=== PATIENT | male | born 1990 | race Caucasian/White ===

== ENCOUNTER 2021-01-06 08:00 | Outpatient (CLI) | payer OTHER | END 2021-01-06 23:59 | disposition home or self-care (01) | LOC: LAB.N 08:00 | PROVIDERS: ATTEND Family Medicine | DX: R07.0 Pain in throat (principal); Z20.822 Contact with and (suspected) exposure to COVID-19 | CPT/HCPCS: 87070 ==

== ENCOUNTER 2021-03-10 08:34 | Outpatient (CLI) | payer OTHER ==
[2021-03-10 09:46] VITALS: BP 117/88
--- NOTE | 2021-03-10 09:46 | SLEEP CARE CONSULTATION ---
Information from patient questionnaire entered by Selam Yeager MA. I have reviewed and concur with the information entered by Selam Yeager MA. This document represents the service I personally performed and the decisions made by , Melinda Kamara ARNP. History of Present Illness Service Date and Time: 03/10/2021 0834 Reason for Visit: New patient (LAST SEEN 2011, ONSET APR 2011) Chief Complaint: reports: Unrefreshed sleep, Snoring, Excessive daytime sl eepiness, Observed pauses in breathing, Fatigue, Frequent awakenings at night Date of Onset: 2012 Usual bedtime: 0700 Time it takes to fall asleep: 30 minutes Snores at night: Yes Observed to quit breathing while asleep: Yes Sleeps alone due to snoring: No Number of times waking at night: 1 - 2 Reasons for waking at night: reports: Gasping for air, Other (unknown reason ) Toss, Turn, or Twitch while sleeping: Yes Recalls having dreams: No Usually gets out of bed at: 2-3 in afternoon Feels refreshed in the morning: No Morning headache: No Sleepy or fatigued during the day: Yes Ever fallen asleep while driving: No Takes day naps: Yes (daily for 1-2 hours) Dreams during day naps: No Prior sleep studies: Yes Additional HPI information: I had the pleasure of seeing JUNE STONEREthel today regarding the possibility of him having a sleep disorder. His current complaints are excessive daytime sleepiness, fatigue, frequent night awakenings, observed pauses in breathing, snoring and unrefreshed sleep. He returns because his girlfriend is telling him his snoring and gasping in his sleep is getting worse. He does not wake up feeling rested and is fatigued during the day. 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 He did put on some weight due to time at home during covid pandemic but has been working on losing weight and lost about 15-20 pounds so far in last 5 months. - Parasomnia Symptoms Ever been unable to move upon waking from sleep: Yes (used to be a lot more, now about 1x month) Walks in sleep: No Talks in sleep: No Ever acted out dreams in sleep: Yes (has woke himself up) Ever felt weak in the knees when startled or emotional: No Bothered by creepy, crawly, restless sensations in legs: Yes (generally when tired, daily) Problems with memory or concentration: Yes (both) Subjective Initial [place] Sleepiness Scale score: 6 (in 2016) Past Medical History Past Medical History: reports: Depression Social History The patient's occupation is a [employer]. Patient is Single and lives in . Have you smoked in the past 12 months: Yes Years of smokin Alcohol use: Yes Alcohol amount and frequency: socially Caffeine use: Yes Caffeine amount and frequency: 2 x daily Family History Family history of sleep disordered breathing: Yes Family Hx Sleep Apnea: Father: Snoring Allergies and Home Medications Known drug allergies: No Drug allergies reviewed: Yes (NKDA) Home medication list reviewed: Yes Allergy and home medication list: Prozac Review of Systems Weight loss over past 5 years: 10-20 in last 5 months, intentionally Cardiovascular: denies: high blood pressure Gastrointestinal: reports: heartburn Neurological: reports: headaches Psychiatric: reports: depression Ear/Nose/Throat: reports: nasal congestion, nose bleeds, wisdom teeth removed. denies: tonsillectomy Musculoskeletal: reports: joint pain, back pain Immunologic: reports: sneezing, allergies to food or environment Physical Exam Vital signs obtained and entered by: SIVA BEEBE Blood Pressure: 117/88 (right) Cuff size: wrist Heart Rate: 81 O2 Saturation: 97 (with mask) Height: 5 ft 10 in Weight: 240 lb Body Mass Index: 34.4 BMI Classification: Obese Neck circumference: 17.75 (inches) Mouth and throat: narrow oropharynx Soft palate: long Hard palate: normal Uvula: normal Uvula visualization: 50% Mallampati Class II Tongue: enlarged in size with teeth keith on lateral edges Tonsils: 1+ Neck: normal w/o lymphadenopathy or thyromegaly Heart: regular rate and rhythm Lungs: clear bilaterally Impression and Plan 1. Suspected Obstructive Sleep Apnea-Hypopnea Syndrome, as suggested by a history of loud and irregular snoring, observed cessation of breath while asleep, gasping or choking in sleep, unrefreshed sleep, cognitive impairment, and excessive daytime sleepiness. Narrow oropharynx and obesity are common predisposing factors for obstructive sleep apnea-hypopnea syndrome. I recommend proceeding to polysomnography to confirm the diagnosis and to assess severity. If the patient has significant sleep disordered breathing, a manual CPAP titration study will also be performed to find the optimal treatment pressure. I informed the patient of what the sleep studies involve and after some discussion, obtained agreement to proceed. The pathophysiology of obstructive sleep apnea-hypopnea syndrome was discussed with the patient and health risks of cardiovascular and cerebrovascular disease if not treated. [facility] brochure for obstructive sleep apnea-hypopnea syndrome given and reviewed. Risks of drowsy driving discussed in detail and patient advised to avoid long distance driving and to plant puller at the first sign of drowsiness. Patient agreed to plan. * Schedule polysomnography +- manual CPAP titration study and return in 1-2 weeks after the study to discuss result and initiate therapy. * Avoid long distance driving or driving when feeling sleepy. * Avoid alcohol, sedative and muscle relaxant around bedtime. * Attempt to lose weight. * Review instructions provided by trained office staff on how to prepare for the sleep study. * Return for follow-up after sleep study completed. Counseling Topics: Weight loss health impact Visit Type: In Office Time Spent with Patient (minutes): 30 Provider Statement: I spent 100% of the Face to Face Visit with the patient with greater than 50% spent counseling the patient and coordination of care.
== END 2021-03-10 08:35 | disposition home or self-care (01) ==
LOC: SC 08:34
PROVIDERS: ATTEND Nurse Practitioner Family
DX: R06.83 Snoring (principal); R06.81 Apnea, not elsewhere classified; G47.8 Other sleep disorders; R41.89 Other symptoms and signs involving cognitive functions and awareness; G47.10 Hypersomnia, unspecified; F17.210 Nicotine dependence, cigarettes, uncomplicated; E66.9 Obesity, unspecified; Z68.34 Body mass index [BMI] 34.0-34.9, adult
CPT/HCPCS: 99203; 99212

== ENCOUNTER 2021-03-23 09:30 | Outpatient (CLI) | payer OTHER | END 2021-03-23 09:31 | disposition home or self-care (01) | LOC: SC 09:30 | PROVIDERS: ATTEND Nurse Practitioner Family | DX: F32.9 Major depressive disorder, single episode, unspecified (principal); G47.33 Obstructive sleep apnea (adult) (pediatric); R09.02 Hypoxemia | CPT/HCPCS: 95806 ==

== ENCOUNTER 2021-03-27 13:32 | Outpatient (CLI) | payer OTHER ==
--- NOTE | 2021-03-27 13:55 | SLEEP CARE CONSULTATION ---
Information from patient questionnaire entered by Selam Yeager MA. I have reviewed and concur with the information entered by Selam Yeager MA. This document represents the service I personally performed and the decisions made by , Melinda Kamara ARNP. History of Present Illness Service Date and Time: 03/27/2021 1332 Initial [place] Sleepiness Scale score: 6 (in 2015) Current [place] Sleepiness Scale score: 10 (2020) Additional HPI information: JUNE COVERT returns for follow up and results of the recently performed home sleep study. I explained the pathophysiology behind obstructive sleep apnea. We then spent quite a bit of time discussing different treatment options. For mild obstructive sleep apnea, surgery and oral appliance are alternatives to nasal CPAP therapy but in moderate or severe cases, nasal CPAP is the most effective and reliable treatment. I reviewed the impact of weight changes on sleep apnea and strongly recommended losing weight. After some discussion, the patient opted to go with the nasal CPAP therapy. Nasal autoCPAP set at 4-15 cmH20 will be ordered with rationale explained. A manual titration study will be ordered if unable to find optimal pressure with office adjustments. I explained how CPAP machine works with sample device ResMed [id number] and what to expect when using the machine. Using CPAP every night in order to get used to it was emphasized. Patient advised to put CPAP mask on before getting into bed so as not to fall asleep without CPAP. To assist acclimation to CPAP use, it could also be used for a short time during day while reading or watching TV. The patient was instructed to call the CPAP supplier to discuss any mechanical problem that may occur. If the mask given is uncomfortable or is difficult to keep on through the night even with adjustment, contact the CPAP supplier as many will replace with another mask style if notified before 30 days. If snoring or perceives is not getting enough air or too much air from the machine, notify this office. [facility] patient education PAP tips reviewed and given to patient. Patient does not drink alcohol. Patient was cautioned about risks of drowsy driving until sleepiness symptoms resolve. Sleep Study - Results Prior sleep studies: Yes Polysomnography/Home Sleep Study results: Physician Impression: The quality of the study is good. The length of the study is adequate (> 240 minutes). Please also see the tabulated and graphic data. 1. Obstructive Sleep Apnea-Hypopnea (ICD-10 G47.33), severe, with an AHI of 35.0/hr and cesar SaO2 of 77%. During the study, the patient had 68 apneas (68 obstructive, 0 central, 0 mixed) and 150 hypopneas. The longest episode lasted 99.0 seconds. The respiratory events occurred more frequently during supine sleep (supine AHI was 36.6 and non-supine, 16.55). 2. Hypoxemia (ICD-10 R09.02), moderate, with the lowest oxygen saturation of 77 % and 32.0 minutes with SaO2 under 90%. Baseline oxygen saturation was normal (Average oxygen saturation was 92%). Allergies and Home Medications Home medication list reviewed: Yes (no changes) Review of Systems Review of systems same as previous: Yes (no changes) Physical Exam Vital signs obtained and entered by: SIVA López Blood Pressure: 118/82 (right) Cuff size: wrist Heart Rate: 82 O2 Saturation: 97 (with mask, quitting vaping, weaning off, ) Height: 5 ft 10 in Weight: 235 lb Body Mass Index: 33.7 BMI Classification: Obese Impression and Plan 1. Obstructive Sleep Apnea-Hypopnea Syndrome, severe, with lowest oxygen saturation of 77%. Obviously this is the cause of the patients symptoms of unrefreshed sleep, and excessive daytime sleepiness. Positive pressure therapy could benefit depression. As mentioned above, the patient will be started on nasal autoCPAP therapy with pressure set at 4-15 cmH2O. A manual titration study will be completed if unable to find optimal treatment pressure with office adj ustments. Compliance guidelines also reviewed. A copy of compliance guidelines will be given for reference at check out. Because the apnea is more severe supine, I instructed to avoid sleeping supine using pillow positioning until able to start CPAP use. 2. Hypoxemia, moderate, with the lowest oxygen saturation of 77 % and 32.0 minutes with SaO2 under 90%. His baseline oxygen saturation was normal with an average oxygen saturation of 92%. * Nasal auto CPAP therapy, pressure at 4-15 cm H2O. * Attempt to lose weight. * Avoid alcohol consumption near bedtime. * Avoid supine sleep until using CPAP. * The patient is again cautioned about driving until sleepiness completely resolves. * Return one month after CPAP obtained. I will assess response to therapy and compliance at that time. Counseling Topics: Weight loss health impact Prescriptions: Auto CPAP Visit Type: In Office Time Spent with Patient (minutes): 21 Provider Statement: I spent 100% of the Face to Face Visit with the patient with greater than 50% spent counseling the patient and coordination of care.
[2021-03-27 13:56] VITALS: BP 118/82
== END 2021-03-27 13:33 | disposition home or self-care (01) ==
LOC: SC 13:32
PROVIDERS: ATTEND Nurse Practitioner Family
DX: G47.33 Obstructive sleep apnea (adult) (pediatric) (principal); E66.9 Obesity, unspecified; Z68.33 Body mass index [BMI] 33.0-33.9, adult; R09.02 Hypoxemia
CPT/HCPCS: 99212; 99213

== ENCOUNTER 2021-04-23 07:54 | Outpatient (CLI) | payer OTHER | END 2021-04-23 23:59 | disposition home or self-care (01) | LOC: LAB.N 07:54 | PROVIDERS: ATTEND Physician Assistant | DX: J06.9 Acute upper respiratory infection, unspecified (principal); R07.0 Pain in throat; Z20.822 Contact with and (suspected) exposure to COVID-19 ==

== ENCOUNTER 2021-09-17 13:50 | Outpatient (CLI) | payer OTHER ==
--- NOTE | 2021-09-17 14:43 | SLEEP CARE CONSULTATION ---
Information from patient questionnaire entered by Selam Yeager MA. I have reviewed and concur with the information entered by Selam Yeager MA. This document represents the service I personally performed and the decisions made by , Melinda Kamara ARNP. History of Present Illness Service Date and Time: 09/17/2021 1350 Previous diagnosis: Severe, Obstructive Sleep Apnea-Hypopnea Syndrome AHI: 35.0 (in 2020) Reason for follow up: first compliance (RESMED,) Equipment type: CPAP Equipment obtained from: [employer] (getting supplies) Mask style: Full face Mask brand: Resmed (Airfit [id number]) Backup mask available: No (will keep old mask when replaced) Last cushion change: 1 month Prior sleep studies: Yes HPI additional information: JUNE HASKINS was diagnosed to have severe, AHI 35.0, obstructive sleep apnea- hypopnea syndrome and returned today for CPAP therapy first compliance follow- up. Sleep Study - Results Prior sleep studies: Yes CPAP Compliance Data - Data Reviewed with Patient Average duration of nightly device use: 3 hours 48 minutes Compliance rate %: 35 (07-18-21 to 09-15-21; 60 day; 40% for last 30 days) Current pressure setting (cmH2O): 4-15 (median 7.3, avg 9.7, max 10.6) Average residual AHI: 2.0 Central apnea: .4 Obstructive apnea: .6 Hypopnea: .3 Average large leak: 56.0 Subjective Missed days of use due to: reports: mask issues (waking up and taking mask off) Patient concerns: reports: air blowing in eyes, nasal congestion, dry mouth, no se, throat, epistaxis. denies: aerophagia, mask discomfort, mask leak noise, condensation in mask/hose Observed to snore while using device: No Current pressure setting perceived as: comfortable On therapy, patient: reports: sleeping better, awakening more refreshed, being more awake and alert during the day, more rested overall. denies: drowsiness while driving Initial [place] Sleepiness Scale score: 6 (in 2015) Current [place] Sleepiness Scale score: 11 Allergies and Home Medications Home medication list reviewed: Yes (no changes) Review of Systems Review of systems same as previous: Yes (no changes) Physical Exam Vital signs obtained and entered by: Lit YEAGER CMA AAND Blood Pressure: 132/90 (LEFT, PULSE 89, RESP 16) Heart Rate: 91 O2 Saturation: 96 (PAPER MASK) Height: 5 ft 10 in Weight: 235 lb Body Mass Index: 33.7 BMI Classification: Obese Impression and Plan 1. Obstructive Sleep Apnea-Hypopnea Syndrome, severe, with poor treatment compliance and good apnea control. On CPAP therapy, the patient has better sleep quality and is more rested overall. The patients pressure will be changed to autoCPAP 8-11 cmH20 to reflect pressures being used. Patient advised to contact me if pressure change is uncomfortable so that it can be adjusted. Goals for apnea control discussed. He has been having issues with waking up and taking the mask off and then going back to sleep before realizing it. He states he thinks he is getting used to the mask on his face. He gets some air leaks that will wake him up and then he will wear the mask for the rest of the night. Compliance guidelines reviewed for insurance coverage. Patient was counseled on the difference between meeting compliance and optimal use of CPAP. Optimal use of CPAP is use of CPAP with all sleep to obtain maximum benefit of treatment. Patient is encouraged to use CPAP with all sleep. He voiced understanding. Patient's apnea severity and rationale for treatment to reduce apnea, improve sleep quality and reduce cardiovascular and cerebrovascular events was reviewed. I also reviewed the benefit of consistent device use of CPAP for depression. 2. Obesity, unspecified. Currently patients BMI is 33.7. Patient states he is trying to eat healthier and exercising more often. He feels he has lost weight. Obesity increases the risk of apnea, CPAP pressure requirements and overall health risks especially cardiovascular and diabetes. Thus patient is advised to continue to try to lose weight. * Change auto CPAP pressure to 8-11 cmH2O * Notify me if snoring with mask or feeling that the pressure is too much or too little * Attempt to lose weight * Call this office if any problems using CPAP * Return for follow up in 1-2 months, or sooner if concerns arise Counseling Topics: Spare mask, Weight loss health impact Visit Type: In Office Time Spent with Patient (minutes): 22 Provider Statement: I spent 100% of the Face to Face Visit with the patient with greater than 50% spent counseling the patient and coordination of care.
[2021-09-17 14:44] VITALS: BP 132/90
== END 2021-09-17 13:51 | disposition home or self-care (01) ==
LOC: SC 13:50
PROVIDERS: ATTEND Nurse Practitioner Family
DX: G47.33 Obstructive sleep apnea (adult) (pediatric) (principal); E66.9 Obesity, unspecified; Z68.33 Body mass index [BMI] 33.0-33.9, adult
CPT/HCPCS: 99212; 99213

== ENCOUNTER 2021-10-16 13:50 | Outpatient (CLI) | payer OTHER ==
[2021-10-16 14:37] VITALS: BP 121/78
--- NOTE | 2021-10-16 14:37 | SLEEP CARE CONSULTATION ---
Information from patient questionnaire entered by Selam Yeager MA. I have reviewed and concur with the information entered by Selam Yeager MA. This document represents the service I personally performed and the decisions made by , Melinda Kamara ARNP. History of Present Illness Service Date and Time: 10/16/2021 1350 Previous diagnosis: Severe, Obstructive Sleep Apnea-Hypopnea Syndrome AHI: 35.0 (in 2020) Reason for follow up: one month (tian patton 05/07/2021, ) Equipment type: CPAP Equipment obtained from: [employer] (needs to contact for supplies) Mask style: Full face Backup mask available: No (will keep old mask when replaced) Last cushion change: months Prior sleep studies: Yes HPI additional information: JUNE HASKINS was diagnosed to have severe, AHI 35.0, obstructive sleep apnea- hypopnea syndrome and returned today for CPAP therapy 1 month with pressure change follow-up. Sleep Study - Results Prior sleep studies: Yes CPAP Compliance Data - Data Reviewed with Patient Average duration of nightly device use: 4 HOURS 20 MINUTES Compliance rate %: 50 (09/15/21-10/14/21; 30 days; days used) Current pressure setting (cmH2O): 8-11 Average residual AHI: 1.6 Central apnea: .3 Obstructive apnea: .5 Hypopnea: .3 Subjective Missed days of use due to: reports: other (allergies) Patient concerns: reports: mask discomfort, air blowing in eyes. denies: aerophagia, mask leak noise, condensation in mask/hose, nasal congestion, dry mouth, nose, throat, epistaxis, other Observed to snore while using device: No Current pressure setting perceived as: comfortable On therapy, patient: reports: sleeping better, awakening more refreshed, being more awake and alert during the day, more rested overall. denies: drowsiness while driving Initial [place] Sleepiness Scale score: 6 (in 2015) Current [place] Sleepiness Scale score: 7 (10/16/2021) Allergies and Home Medications Home medication list reviewed: Yes (no changes) Review of Systems Review of systems same as previous: Yes (no changes) Physical Exam Vital signs obtained and entered by: SIVA López Blood Pressure: 121/78 (RESP 16, PULSE 63, RIGHT) Cuff size: wrist Heart Rate: 63 O2 Saturation: 97 (PAPER MASK) Height: 5 ft 10 in Weight: 230 lb (CLOTHES) Body Mass Index: 33.0 BMI Classification: Obese Impression and Plan 1. Obstructive Sleep Apnea-Hypopnea Syndrome, severe, with fair treatment compliance and good apnea control. On CPAP therapy, the patient has better sleep quality and is more rested overall. Patient has improved his compliance to 50% from 35% at his last visit. He states he is now able to leave the mask on in the last week for over 6 hours at night. He has significant improvement of his sleep apnea. I am encouraged that he will continue to improve his compliance numbers. He has been having some mask leaks with some air blowing in his eyes but he has not been able to change out his mask cushion. I encouraged him to call his DME supplier to order supplies since he has not yet done this. Mask leaks can be reduced by washing mask daily and changing mask cushions more frequently to improve mask seal and comfort. Patient's apnea severity and rationale for treatment to reduce apnea, improve sleep quality and reduce cardiovascular and cerebrovascular events was reviewed. I also reviewed the benefit of consistent device use of CPAP for depression. 2. Obesity, unspecified. Currently patients BMI is 33.0. Obesity increases the risk of apnea, CPAP pressure requirements and overall health risks especially cardiovascular and diabetes. Thus patient is advised to lose weight. Weight loss can be done with reducing portion size, reducing refined foods and balancing content with vegetables, fruit and whole grain foods. In addition, patient encouraged to get regular exercise. * Continue auto CPAP pressure at 8-11 cmH2O * Notify me if snoring with mask or feeling that the pressure is too much or too little * Attempt to lose weight * Call this office if any problems using CPAP * Return for follow up in 1-2 months, or sooner if concerns arise Counseling Topics: Spare mask, Weight loss health impact Visit Type: In Office Time Spent with Patient (minutes): 13 Provider Statement: I spent 100% of the Face to Face Visit with the patient with greater than 50% spent counseling the patient and coordination of care.
== END 2021-10-16 13:51 | disposition home or self-care (01) ==
LOC: SC 13:50
PROVIDERS: ATTEND Nurse Practitioner Family
DX: G47.33 Obstructive sleep apnea (adult) (pediatric) (principal); E66.9 Obesity, unspecified; Z68.33 Body mass index [BMI] 33.0-33.9, adult
CPT/HCPCS: 99212